=== PATIENT | female | born 1980 | race Caucasian/White ===

== ENCOUNTER 2018-08-17 11:40 | Emergency (ER) | payer OTHER ==
[~2018-08-17] VITALS: Ht 167.6 cm; Wt 70.3 kg
[~2018-08-17 11:40] MED LIST: PRENATAL CAPSU1 EACH PO
[2018-08-17] MEDS ORDERED: CELEBREX200MG PO (13:05)
== END 2018-08-17 13:17 | disposition home or self-care (01) ==
LOC: ER 11:40
DX: M65.872 Other synovitis and tenosynovitis, left ankle and foot (principal)

== ENCOUNTER 2018-09-21 08:31 | Emergency (ER) | payer OTHER ==
[~2018-09-21] VITALS: Ht 167.6 cm; Wt 70.3 kg
[~2018-09-21 08:31] MED LIST changes: +CELEBREX200MG PO
== END 2018-09-21 09:40 | disposition home or self-care (01) ==
LOC: ER 08:31
DX: J03.90 Acute tonsillitis, unspecified (principal)

== ENCOUNTER 2019-01-04 13:18 | Emergency (ER) | payer OTHER ==
[~2019-01-04] VITALS: Ht 167.6 cm; Wt 72.6 kg
== END 2019-01-04 14:19 | disposition home or self-care (01) ==
LOC: ER 13:18
DX: M54.5 Low back pain (principal)